=== PATIENT | female | born 1970 | race Two or more races ===

== ENCOUNTER 2022-11-24 12:40 | Emergency (ER) | payer OTHER ==
[~2022-11-24] VITALS: Ht 157.5 cm; Wt 64.4 kg
--- NOTE | 2022-11-24 13:00 | NUR ---
REceived pt 52 yrs female came from home accompany by jacqueline for abdominal pain and n/v seen
--- NOTE | 2022-11-24 13:15 | NUR ---
blood drow by lab tach
--- NOTE | 2022-11-24 13:40 | NUR ---
UA SENT TO LAB
--- NOTE | 2022-11-24 13:52 | NUR ---
X- ray done at bed side
[2022-11-24 14:25] LABS: BASOPHILS # (AUTO) 0.1 K/uL (0.0-0.2); BASOPHILS % (AUTO) 0.8 % (0.0-2.0); EOSINOPHILS % (AUTO) 0.4 % (0.0-6.0); HEMATOCRIT 43 % (33-45); HEMOGLOBIN 14.7 g/dL (11.5-14.8); LYMPHOCYTES # (AUTO) 0.7 K/uL (0.8-4.8); LYMPHOCYTES % (AUTO) 6.7 % (20.0-44.0); MEAN CORPUSCULAR HGB CONC 34 g/dl (31.0-36.0); MEAN CORPUSCULAR VOLUME 87 fL (82-100); MONOCYTES # (AUTO) 0.3 K/uL (0.1-1.30); MONOCYTES % (AUTO) 2.8 % (2.0-12.0); NEUTROPHILS # (AUTO) 9.2 K/uL (1.8-8.9); NEUTROPHILS % (AUTO) 89.3 % (43.0-81.0); PLATELET COUNT (AUTO) 255 K/uL (150-450); RED BLOOD CELL COUNT(AUTO) 4.91 MIL/uL (4.0-5.2); WHITE BLOOD COUNT (AUTO) 10.3 K/uL (4.3-11.0)
[2022-11-24] MEDS ORDERED: ONDANSETRON HCL/PF 4 MG/2 ML VIAL IVP ONE (14:30)
[2022-11-24] MEDS ORDERED: IV NS 0.9% 1,000 ML BAG IV ONE (14:30)
[2022-11-24] MEDS ORDERED: FAMOTIDINE/PF INJ 20 MG/2 ML VIAL IV ONE ×2 (14:30→14:36)
[2022-11-24] MEDS ORDERED: ONDANSETRON HCL/PF 4 MG/2 ML VIAL ONE (14:36)
[2022-11-24 15:14] LABS: CALCIUM, SERUM 9.1 mg/dL (8.5-10.1); CREATININE 0.7 mg/dL (0.6-1.3); POTASSIUM 3.3 mmol/L (3.5-5.1)
[2022-11-24 15:19] LABS: BILIRUBIN,DIRECT 0.2 mg/dL (0.0-0.2); BILIRUBIN,TOTAL 0.6 mg/dL (0.2-1.0); TOTAL PROTEIN, SERUM 8.6 g/dL (6.4-8.2)
[2022-11-24] MEDS ORDERED: ONDA4TAB5 PO (16:01)
[2022-11-24 16:06] LABS: BILIRUBIN,URINE NEGATIVE (NEGATIVE); COLOR,URINE YELLOW (YELLOW); LEUKOCYTE ESTERASE ,URINE NEGATIVE (NEGATIVE); NITRITE, URINE NEGATIVE (NEGATIVE); PROTEIN,URINE TRACE mg/dl (NEGATIVE); UGLUCOSE NEGATIVE (NEGATIVE)
--- NOTE | 2022-11-24 16:30 | NUR ---
IV removed. Catheter intact and site benign. Pressure and 4x4 applied to site. No bleeding noted.
[2022-11-24 16:33] LABS: BACTERIA,URINE RARE /HPF (None Seen); RBC,URINE 0-2 /HPF (0-2); WBC,URINE 0-2 /HPF (0-3)
[2022-11-24 16:34] LABS: MUCUS,URINE Moderate /LPF (None Seen)
--- NOTE | 2022-11-24 16:35 | NUR ---
Patient discharged to home in stable condition. Written and verbal after care instructions given. Patient verbalizes understanding of instruction.
[2022-11-24 17:42] VITALS: BP 132/68
== END 2022-11-24 17:00 | disposition home or self-care (01) ==
LOC: ER 12:57
DX: R11.10 Vomiting, unspecified (principal); R10.13 Epigastric pain
CPT/HCPCS: 99285; 96374; 76700; 96361; 96375; 93005; 85025; 80048; 83690; 80076; 81001; 36415; J3490; J2405; J7030

== ENCOUNTER 2023-10-07 10:30 | Emergency (ER) | payer OTHER ==
[~2023-10-07] VITALS: Ht 157.5 cm; Wt 63.0 kg
[~2023-10-07 10:30] MED LIST: ONDA4TAB5 PO
[2023-10-07] MEDS ORDERED: CYCLOBENZAPRINE 10 MG TABLET ONE (11:17)
[2023-10-07] MEDS ORDERED: KETOROLAC TROMETHAMINE INJ 30 MG/ML VIAL ONE (11:17)
[2023-10-07] MEDS: KETOROLAC TROMETHAMINE INJ 60 MG/2 ML VIAL IM ONE (11:24)
[2023-10-07] MEDS: CYCLOBENZAPRINE 10 MG TABLET PO ONE (11:24)
[2023-10-07] MEDS ORDERED: KETO10TA2 PO (12:33)
[2023-10-07] MEDS ORDERED: CYCL5TAB PO (12:33)
[2023-10-07 12:54] VITALS: BP 122/71; TEMP 98.1; O2SAT 100
== END 2023-10-07 12:55 | disposition home or self-care (01) ==
LOC: ER 10:38
DX: S39.012A Strain of muscle, fascia and tendon of lower back, initial encounter (principal); Z79.899 Other long term (current) drug therapy; X58.XXXA Exposure to other specified factors, initial encounter; Y93.89 Activity, other specified; Y92.89 Other specified places as the place of occurrence of the external cause; Y99.8 Other external cause status
CPT/HCPCS: 99283; 96372; J1885